=== PATIENT | female | born 1935 | race Caucasian/White ===

== ENCOUNTER 2019-09-17 15:16 | Emergency (ER) | payer OTHER ==
[~2019-09-17] VITALS: Ht 147.3 cm; Wt 59.4 kg
--- NOTE | 2019-09-17 15:21 | NUR ---
BIB RA FROM HOME,NAUSEA/VOMITING/DIZZINESS MANAGER FRONT OFFICE, TO ER BED 08, HOOKED TO MONITOR, CHANGED TO HOSP GOWN, WARM BLANKET PROVIDED, PATIENT AAO x 3, BREATHING EVEN AND UNLABORED. AWAITING MD GRACE.
--- NOTE | 2019-09-17 15:21 | NUR ---
DR NG AT BEDSIDE
[2019-09-17] MEDS ORDERED: ONDANSETRON HCL/PF 4 MG/2 ML VIAL ONE (15:26)
[2019-09-17] MEDS ORDERED: IV NS 0.9% 500 ML BAG IV ONE (15:30)
[2019-09-17] MEDS ORDERED: ONDANSETRON HCL/PF 4 MG/2 ML VIAL IVP ONE (15:30)
--- NOTE | 2019-09-17 15:30 | NUR ---
STOCK ROLLER AT BEDSIDE
--- NOTE | 2019-09-17 15:34 | NUR ---
ANAESTHETIC TECHNICIAN AT BEDSIDE FOR XRAY
[2019-09-17 15:41] LABS: BASOPHILS % (AUTO) 0.3 % (0.0-2.0); EOSINOPHILS % (AUTO) 2.4 % (0.0-6.0); HEMATOCRIT 37 % (33-45); HEMOGLOBIN 12.4 g/dL (11.5-14.8); LYMPHOCYTES # (AUTO) 1.6 /CMM (0.8-4.8); LYMPHOCYTES % (AUTO) 14.9 % (20.0-44.0); MEAN CORPUSCULAR HGB CONC 34 g/dl (31.0-36.0); MEAN CORPUSCULAR VOLUME 94 fL (82-100); MONOCYTES # (AUTO) 0.5 /CMM (0.1-1.30); MONOCYTES % (AUTO) 5.2 % (2.0-12.0); NEUTROPHILS # (AUTO) 8.1 /CMM (1.8-8.9); NEUTROPHILS % (AUTO) 77.2 % (43.0-81.0); PLATELET COUNT (AUTO) 234 /CMM (150-450); RED BLOOD CELL COUNT(AUTO) 3.92 MIL/uL (4.0-5.2); WHITE BLOOD COUNT (AUTO) 10.5 K/uL (4.3-11.0)
[2019-09-17 15:49] LABS: CALCIUM, SERUM 8.9 mg/dL (8.5-10.1); CARBON DIOXIDE 26 mmol/L (21-32); CHLORIDE 102 mmol/L (98-107); CREATININE 1.4 mg/dL (0.6-1.3); GLUCOSE 144 mg/dL (74-106); SODIUM SERUM 139 mmol/L (136-145); UREA NITROGEN, BLOOD 19 mg/dL (7-18)
[2019-09-17 15:55] LABS: ALANINE AMINOTRANSFERASE 27 U/L (12-78); ALBUMIN 3.7 g/dL (3.4-5.0); ALKALINE PHOSPHATASE 56 U/L (46-116); ASPARTATE AMINOTRANSFERASE 22 U/L (15-37); BILIRUBIN,DIRECT 0.1 mg/dL (0.0-0.2); BILIRUBIN,TOTAL 0.4 mg/dL (0.2-1.0); LIPASE 395 U/L (73-393); TOTAL PROTEIN, SERUM 7.5 g/dL (6.4-8.2)
--- NOTE | 2019-09-17 16:01 | NUR ---
URINE SAMPLE COLLECTED VIA STRAIGHT CATH AND SENT TO LAB
[2019-09-17] MEDS ORDERED: IOHEXOL-300 100 ML VIAL IV ONE (16:07)
[2019-09-17] MEDS ORDERED: CT SWABBABLE VALVE TRANS SET 1 EA INFUS.SET MC ONE (16:07)
[2019-09-17] MEDS ORDERED: IV NS 0.9% 250 ML IV ONE (16:08)
[2019-09-17 16:11] LABS: APPEARANCE,URINE Clear (CLEAR); BILIRUBIN,URINE SMALL (NEGATIVE); BLOOD, URINE Negative Ery/uL (NEGATIVE); COLOR,URINE Red (YELLOW); KETONES,URINE 15 (NEGATIVE); LEUKOCYTE ESTERASE ,URINE Negative (NEGATIVE); NITRITE, URINE Positive (NEGATIVE); PROTEIN,URINE Trace mg/dl (NEGATIVE); UGLUCOSE Negative (NEGATIVE)
--- NOTE | 2019-09-17 16:24 | NUR ---
WHEELED OUT VIA RNEY FOR CT SCAN
[2019-09-17] MEDS ORDERED: BENA20TA9 PO (16:26)
[2019-09-17] MEDS ORDERED: ASPI-1152 PO (16:26)
[2019-09-17] MEDS ORDERED: METF-442 PO (16:26)
[2019-09-17] MEDS ORDERED: CALC1TAB91 PO (16:26)
[2019-09-17] MEDS ORDERED: FERR325T24 PO (16:26)
[2019-09-17] MEDS ORDERED: MECL-182 PO (16:26)
[2019-09-17] MEDS ORDERED: MEMA10TA56 PO (16:26)
[2019-09-17] MEDS ORDERED: ALEN70TA6 PO (16:26)
[2019-09-17] MEDS ORDERED: HYDR25TA4 PO (16:26)
[2019-09-17 16:42] LABS: BACTERIA,URINE 1+ /HPF (None Seen); SQUAMOUS EPITHELIAL CELL,UR Few /HPF (None Seen); URINE AMORPHOUS URATE Many /HPF (None Seen)
--- NOTE | 2019-09-17 17:53 | NUR ---
VERBAL ORDER OF KEFLEX 500MG PO RECEIVED FROM DR NG. CARRIED OUT
[2019-09-17] MEDS ORDERED: CEPHALEXIN MONOHYDRATE 500 MG CAPSULE PO ONE ×2 (17:54→18:30)
--- NOTE | 2019-09-17 18:41 | NUR ---
IV removed. Catheter intact and site benign. Pressure and 4x4 applied to site. No bleeding noted.Patient discharged to home with family in stable condition. Written and verbal after care instructions given. Patient verbalizes understanding of instruction.
[2019-09-17 18:42] VITALS: BP 131/62
== END 2019-09-17 18:43 | disposition home or self-care (01) ==
LOC: ER 15:23
DX: R11.2 Nausea with vomiting, unspecified (principal); R53.1 Weakness; R82.81 Pyuria; E11.9 Type 2 diabetes mellitus without complications; Z79.899 Other long term (current) drug therapy; Z79.82 Long term (current) use of aspirin
CPT/HCPCS: 36415; 71045; 74177; 80048; 80076; 81001; 83690; 84484; 85025; 87081; 87086; 93005; 96374; 99285; J2405; J7040; J7050; Q9967; 81000-TC